=== PATIENT | male | born 1935 | race Caucasian/White ===

== ENCOUNTER → 2016-10-27 | Day surgery (SDC) | payer MEDICARE, OTHER ==
[~2016-10-27] MED LIST: Lidocaine 2% 20 ML MDV INJECT ONE; Sodium Bicarbonate 8.4% 50 MEQ/50 ML SDV ONE
[2016-10-27 15:35] VITALS: BP 165/87
--- NOTE | 2016-10-27 22:37 | OR ---
DATE OF OPERATION: 10/27/2016 PREOPERATIVE DIAGNOSIS: UNSPECIFIED LESION SUGGESTING BASAL CELL CARCINOMA ROOT OF NOSE. POSTOPERATIVE DIAGNOSIS: UNSPECIFIED LESION SUGGESTING BASAL CELL CARCINOMA ROOT OF NOSE. SURGEON: Arya Quintana MD PROCEDURE: WIDE EXCISION AND PRIMARY CLOSURE, NASAL LESION. DICTATION ENDS HERE PRO/YOMAIRA /[id number]
--- NOTE | 2016-10-27 23:07 | OR ---
DATE OF OPERATION: 10/27/2016 PREOPERATIVE DIAGNOSIS: UNSPECIFIED LESION, NASAL ROOT (SUGGESTING BASAL CELL CARCINOMA). POSTOPERATIVE DIAGNOSIS: UNSPECIFIED LESION, NASAL ROOT (SUGGESTING BASAL CELL CARCINOMA). SURGEON: Arya Quintana MD PROCEDURE: WIDE EXCISION AND PRIMARY CLOSURE. DESCRIPTION OF PROCEDURE: Dr. Ha kindly sent this gentleman to me regarding a lesion involving the nasal root. It appears to be 1 cm in diameter, it has a rolled edge margin and has some crusting within the depths of the margin. It appears to be a basal cell carcinoma. The peripheral margin is somewhat indistinct. He was taken to the operating suite and the area was prepped and draped and then following this, Xylocaine 2% with epinephrine buffered solution was carefully used with 3 mL infiltrated into the area. A wide ellipse with a margin of approximately 3 mm peripherally was then performed. The incision site was horizontal and the area was carefully undermined both by way of the nasal dorsum and also up towards the forehead area. It was necessary to undermine an area for proper closure without tension. Prior to closure, he had some fairly prominent ridging of the nasal bones dorsally. This was carefully taken down and I am sure this has been contributing to the problem due to the fact he uses CPAP at night. After undermining, I carefully closed the subcutaneous tissues with interrupted 5-0 Vicryl suture. This was buried. Following this, 6-0 Prolene was then used to close the skin edges. The area was not under tension, and following this, dressings were applied. The standard precautions are noted for discharge, a recheck with me in approximately 1 month. I will ask Dr. Ha if he could kindly remove the sutures in approximately 7-10 days. PRO/YOMAIRA /[id number]
== END ==
LOC: CC.SDS 11:44
DX: L57.8 Other skin changes due to chronic exposure to nonionizing radiation (principal)
CPT/HCPCS: 88305

== ENCOUNTER 2016-12-29 10:54 | Inpatient (IN) | payer MEDICARE, OTHER ==
[2016-12-29 12:06] LABS: CHLORIDE,CL 90 mEq/L (98-106)
[2016-12-29 12:07] LABS: SODIUM,NA 124 mEq/L (136-145)
[2016-12-29] MEDS ORDERED: Acetaminophen 325 MG Tab PO PRN (13:17)
[2016-12-29] MEDS ORDERED: Temazepam 15 MG Cap PO PRN (13:17)
[2016-12-29] MEDS ORDERED: Docusate Sodium 100 MG Cap PO PRN (13:17)
[2016-12-29] MEDS ORDERED: Sodium Chloride 0.9% 10 ML Syringe FLUSH PRN (13:17)
[2016-12-29] MEDS ORDERED: Iopamidol 612 MG/ML 100 ML Bottle IVPUSH ONE (14:23)
[2016-12-29] MEDS: Azithromycin 500 MG in Sodium Chloride 0.9% 250 ML IV SCH (16:01)
[2016-12-29] MEDS ORDERED: Albuterol 8 GM Inhaler INH PRN (16:06)
[2016-12-29] MEDS: Enoxaparin 40 MG/0.4 ML Syringe SUBCUT SCH (16:08)
[2016-12-29] MEDS: cefTRIAXone 1 GM Vial IVPUSH SCH (16:09)
[2016-12-29] MEDS: methylPREDNISolone Sodium Succinate 125 MG/2 ML SDV IVPUSH SCH (16:09)
[2016-12-29] MEDS: Celecoxib 100 MG Cap PO SCH (17:49)
[2016-12-29] MEDS: Albuterol/Ipratropium 3.0-0.5 MG/3 ML Neb Soln NEB SCH ×2 (17:49→20:29)
[2016-12-29] MEDS: Cholecalciferol (Vitamin D3) 1,000 Unit Tab PO SCH (20:04)
[2016-12-29] MEDS: Budesonide 0.5 MG/2 ML Neb Susp INH SCH (20:04)
[2016-12-29] MEDS: Famotidine 20 MG Tab PO SCH (20:04)
[2016-12-29] MEDS: Formoterol/Mometasone 200-5 MCG 8.8 GM Inhaler IH SCH (20:05)
[2016-12-30] MEDS: Celecoxib 100 MG Cap PO SCH ×2 (07:50→18:13)
[2016-12-30] MEDS: Aspirin 81 MG Tab.EC PO SCH (07:51)
[2016-12-30] MEDS: Losartan 25 MG Tab PO SCH (07:51)
[2016-12-30] MEDS: Loratadine 10 MG Tab PO SCH (07:51)
[2016-12-30] MEDS: Folic Acid 1 MG Tab PO SCH (07:51)
[2016-12-30] MEDS: Enoxaparin 40 MG/0.4 ML Syringe SUBCUT SCH (07:51)
[2016-12-30] MEDS: Famotidine 20 MG Tab PO SCH ×2 (07:51→20:29)
[2016-12-30] MEDS: cefTRIAXone 1 GM Vial IVPUSH SCH (07:54)
[2016-12-30] MEDS: Azithromycin 500 MG in Sodium Chloride 0.9% 250 ML IV SCH (07:54)
[2016-12-30] MEDS: methylPREDNISolone Sodium Succinate 125 MG/2 ML SDV IVPUSH SCH (07:54)
[2016-12-30 07:59] LABS: CHLORIDE,CL 95 mEq/L (98-106); SODIUM,NA 126 mEq/L (136-145)
[2016-12-30] MEDS: Budesonide 0.5 MG/2 ML Neb Susp INH SCH ×3 (09:45→20:30)
[2016-12-30] MEDS: Albuterol/Ipratropium 3.0-0.5 MG/3 ML Neb Soln NEB SCH ×3 (09:45→18:14)
--- NOTE | 2016-12-30 10:32 | PN ---
DATE: 12/30/2016 S: Yordy Martinez came in with an acute bronchiolitis, hyponatremia. O: NECK: Supple. CHEST: Occasional wheezing. CARDIAC: Sounds are good. GENERAL: He looks much better today. ASSESSMENT: ACUTE BRONCHIOLITIS; HYPONATREMIA, CORRECTING. P: Continue IV therapy. MANUEL/YOMAIRA /[id number]
[2016-12-30] MEDS: Formoterol/Mometasone 200-5 MCG 8.8 GM Inhaler IH SCH ×2 (10:40→20:30)
[2016-12-30] MEDS: Cholecalciferol (Vitamin D3) 1,000 Unit Tab PO SCH (20:29)
[2016-12-31] MEDS: Albuterol/Ipratropium 3.0-0.5 MG/3 ML Neb Soln NEB SCH ×5 (00:03→20:10)
[2016-12-31 07:40] LABS: CHLORIDE,CL 100 mEq/L (98-106); SODIUM,NA 134 mEq/L (136-145)
[2016-12-31] MEDS ORDERED: Methotrexate 2.5 MG Tab PO SCH (08:00)
[2016-12-31] MEDS: Enoxaparin 40 MG/0.4 ML Syringe SUBCUT SCH (08:06)
[2016-12-31] MEDS: cefTRIAXone 1 GM Vial IVPUSH SCH (08:07)
[2016-12-31] MEDS: Famotidine 20 MG Tab PO SCH ×2 (08:11→19:42)
[2016-12-31] MEDS: Loratadine 10 MG Tab PO SCH (08:11)
[2016-12-31] MEDS: Losartan 25 MG Tab PO SCH (08:11)
[2016-12-31] MEDS: Celecoxib 100 MG Cap PO SCH ×2 (08:11→17:02)
[2016-12-31] MEDS: Aspirin 81 MG Tab.EC PO SCH (08:11)
[2016-12-31] MEDS: Folic Acid 1 MG Tab PO SCH (08:11)
[2016-12-31] MEDS: methylPREDNISolone Sodium Succinate 125 MG/2 ML SDV IVPUSH SCH (08:22)
[2016-12-31] MEDS: Azithromycin 500 MG in Sodium Chloride 0.9% 250 ML IV SCH (08:33)
[2016-12-31] MEDS: Budesonide 0.5 MG/2 ML Neb Susp INH SCH ×3 (09:36→20:10)
[2016-12-31] MEDS: Formoterol/Mometasone 200-5 MCG 8.8 GM Inhaler IH SCH ×2 (09:36→20:11)
[2016-12-31] MEDS: Cholecalciferol (Vitamin D3) 1,000 Unit Tab PO SCH (19:42)
[2017-01-01 07:52] LABS: CHLORIDE,CL 103 mEq/L (98-106); SODIUM,NA 137 mEq/L (136-145)
--- NOTE | 2017-01-01 08:13 | PN ---
DATE: 12/31/2016 S: This is an elderly white male, who came in markedly weak, hyponatremic, bronchiolitis. O: GENERAL: The patient alert and oriented. NECK: Supple. CHEST: Expiratory wheezing. CARDIAC: Sounds are okay. EXTREMITIES: No edema. LABORATORY DATA: Hemoglobin had stabilized at 11.1. His sodium is now back up to 134. But he has had difficulty. He has to ambulate with help, so we talked about the possibility of prison placement. He is kind in agreement with that and would certainly going to look at that. MANUEL/YOMAIRA /[id number]
[2017-01-01 08:18] VITALS: BP 165/91
[2017-01-01] MEDS: Enoxaparin 40 MG/0.4 ML Syringe SUBCUT SCH (08:20)
[2017-01-01] MEDS: methylPREDNISolone Sodium Succinate 125 MG/2 ML SDV IVPUSH SCH (08:21)
[2017-01-01] MEDS: Aspirin 81 MG Tab.EC PO SCH (08:23)
[2017-01-01] MEDS: Famotidine 20 MG Tab PO SCH (08:23)
[2017-01-01] MEDS: Losartan 25 MG Tab PO SCH (08:23)
[2017-01-01] MEDS: Folic Acid 1 MG Tab PO SCH (08:23)
[2017-01-01] MEDS: Celecoxib 100 MG Cap PO SCH (08:24)
[2017-01-01] MEDS: Loratadine 10 MG Tab PO SCH (08:24)
[2017-01-01] MEDS: cefTRIAXone 1 GM Vial IVPUSH SCH (08:28)
[2017-01-01] MEDS: Azithromycin 500 MG in Sodium Chloride 0.9% 250 ML IV SCH (08:30)
[2017-01-01] MEDS: Budesonide 0.5 MG/2 ML Neb Susp INH SCH (08:31)
[2017-01-01] MEDS: Formoterol/Mometasone 200-5 MCG 8.8 GM Inhaler IH SCH (08:31)
[2017-01-01] MEDS: Albuterol/Ipratropium 3.0-0.5 MG/3 ML Neb Soln NEB SCH (08:31)
--- NOTE | 2017-01-04 07:17 | DISCH ---
HOSPITAL COURSE: Yordy Martinez was admitted with acute bronchiolitis and marked hyponatremia. 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 At the time of discharge, sodium was normal. His lungs were relatively clear, but he still had some difficulty with mild confusion and difficulty ambulating, so we decided to send him to the [place] [facility]. Lab here in the hospital, CBC all looked good. White count a little high from the IV steroids. Hemoglobin was stable and about where it is usually at. When he came in, sodium was 124 and it was 137 prior to discharge. Blood sugars mildly elevated. C-reactive protein 1.5. B12, folic acid, proBNP good. Urinalysis looked good. DISPOSITION: The patient now discharged to [facility] the [facility]. DISCHARGE MEDICATIONS: Home medications plus Z-Dudley plus hydrocortisone 10 mg daily. DISCHARGE DIAGNOSIS: 1. BRONCHIOLITIS. 2. HYPONATREMIA. 3. RHEUMATOID ARTHRITIS. 4. HYPERTENSION. 5. HYPERLIPIDEMIA. 6. CORONARY ARTERY DISEASE. MANUEL/YOMAIRA /[id number]
== END 2017-01-01 09:45 | DRG 191 ==
LOC: CC.FCMC 10:54 → CC.MS 10:54 → UNDOADMIN 12:16 → CC.MS 12:16 → UNDOADMIN 13:17
PROVIDERS: ADMIT General Practice; ATTEND General Practice
DX: J44.0 Chronic obstructive pulmonary disease with (acute) lower respiratory infection (principal); J21.9 Acute bronchiolitis, unspecified; E87.1 Hypo-osmolality and hyponatremia; E27.1 Primary adrenocortical insufficiency; M06.9 Rheumatoid arthritis, unspecified; R06.02 Shortness of breath; R53.83 Other fatigue; R35.1 Nocturia; I25.10 Atherosclerotic heart disease of native coronary artery without angina pectoris; I10 Essential (primary) hypertension; Z88.8 Allergy status to other drugs, medicaments and biological substances; Z79.82 Long term (current) use of aspirin; Z79.899 Other long term (current) drug therapy; R41.0 Disorientation, unspecified; R26.2 Difficulty in walking, not elsewhere classified; E78.5 Hyperlipidemia, unspecified
CPT/HCPCS: 36415; 71020; 71250; 80048; 80053; 81001; 82533; 82607; 82746; 83735; 83880; 85025; 85379; 86140; 93005; 94640; 94640-76; 97110-GP; 97161-GP; 97530-GP; A9270-GY; J0456; J0696; J1650; J2930; J7050; J8610; Q9967

== ENCOUNTER 2020-01-01 12:40 | Emergency (ER) | payer MEDICARE, OTHER ==
[2020-01-01 12:45] VITALS: BP 108/56; PULSE 91
[2020-01-01] MEDS ORDERED: Albuterol 8 GM Inhaler INH PRN (12:51)
[2020-01-01] MEDS: Albuterol/Ipratropium 3.0-0.5 MG/3 ML Neb Soln NEB ONE (13:00)
[2020-01-01] MEDS: Albuterol/Ipratropium 3.0-0.5 MG/3 ML Neb Soln ONE (13:00)
--- NOTE | 2020-01-01 13:28 | EDM.PDOC ---
ED HPI GENERAL MEDICAL PROBLEM - General Chief Complaint: Respiratory Problem Stated Complaint: SOB Time Seen by Provider: 01/01/20 13:26 Source of Information: Reports: Patient, EMS History Limitations: Reports: No Limitations - History of Present Illness INITIAL COMMENTS - FREE TEXT/NARRATIVE: Yordy is an 84 yo male who presents to the ED via [facility] with c/o shortness of breath. Does have longstanding history of COPD but reports this morning he was feeling more short of breath than usual and just overall did not feel well. Did try his nebulizer but continued to feel SOB so called EMS. He denies any chest pain, edema, dizziness, syncope, N/V/D, fever, chills. Denies any symptoms other than his shortness of breath. Did receive Duoneb enroute with EMS and breathing has improved. At time of assessment O2 sats are 97% on RA. He is conversant with no increased work of breathing. Onset: Today Duration: Improving Associated Symptoms: Reports: Shortness of Breath. Denies: Confusion, Chest Pain, Cough, cough w sputum, Fever/Chills, Headaches, Malaise, Nausea/Vomiting, Syncope, Weakness Treatments CONTACT LENS CURVE GRINDER: Reports: Breathing Treatments, Oxygen - Related Data Allergies Allergy/AdvReac Type Severity Reaction Status Date / Time clopidogrel bisulfate Allergy Intermediate Rash Verified 01/01/20 12:48 [From Plavix] Home Meds: Home Meds Albuterol/Ipratropium [DuoNeb 3.0-0.5 MG/3 ML] 1 vial NEB QID 10/11/14 [History] Cholecalciferol (Vitamin D3) [Vitamin D3] 2,000 units PO DAILY 10/11/14 [History] Folic Acid 1 mg PO DAILY 10/11/14 [History] Losartan Potassium [Cozaar] 50 mg PO DAILY 10/11/14 [History] Methotrexate Sodium [Methotrexate] 20 mg PO TH 10/11/14 [History] atorvaSTATin Calcium [Atorvastatin Calcium] 10 mg PO BEDTIME 10/11/14 [History] Albuterol Sulfate [Proair Hfa] 2 puff IH ASDIRECTED PRN 10/26/16 [History] Ascorbate Calcium [Vitamin C] 500 mg PO DAILY 10/26/16 [History] Aspirin [Halfprin] 81 mg PO DAILY 10/26/16 [History] Budesonide/Formoterol [Symbicort 160-4.5 MCG] 2 puff INH BID 10/26/16 [History] Cetirizine [ZyrTEC] 10 mg PO DAILY 10/26/16 [History] Famotidine [Pepcid] 10 mg PO DAILY 10/26/16 [History] Vitamin E 400 unit PO DAILY 10/26/16 [History] Montelukast [Singulair] 10 mg PO BEDTIME 04/19/18 [History] Tiotropium [place] [Spiriva Respimat] 2.5 mcg INH BID 01/01/20 [History] amLODIPine [Norvasc] 5 mg PO BEDTIME 01/01/20 [History] Past Medical History HEENT History: Reports: Impaired Vision Cardiovascular History: Reports: High Cholesterol, Hypertension, Stents Respiratory History: Reports: Asthma, COPD, Sleep Apnea, SOB Gastrointestinal History: Reports: PUD Genitourinary History: Reports: Prostate Disorder Musculoskeletal History: Reports: Arthritis Endocrine/Metabolic History: Reports: Vitamin D Deficiency Oncologic (Cancer) History: Reports: Prostate - Past Surgical History HEENT Surgical History: Reports: Cataract Surgery Cardiovascular Surgical History: Reports: Vascular Surgery Respiratory Surgical History: Reports: None GI Surgical History: Reports: Colonoscopy, Polypectomy Male Surgical History: Reports: Prostatectomy Musculoskeletal Surgical History: Reports: Amputation Other Musculoskeletal Surgeries/Procedures:: Accidental amputation of left pinky. Oncologic Surgical History: Reports: Other (See Below) Other Oncologic Surgeries/Procedures: Prostatectomy Social & Family History - Family History Family Medical History: Noncontributory - Tobacco Use Smoking Status *Q: Former Smoker Packs/Tins Daily: 1 Used Tobacco, but Quit: Yes Month/Year Tobacco Last Used: 04/1969 - Caffeine Use Caffeine Use: Reports: Coffee - Recreational Drug Use Recreational Drug Use: No ED ROS GENERAL - Review of Systems Review Of Systems: Comprehensive ROS is negative, except as noted in HPI. ED EXAM, GENERAL - Physical Exam Exam: See Below Exam Limited By: No Limitations General Appearance: Alert, WD/WN, No Apparent Distress Eye Exam: Bilateral Eye: EOMI, Normal Fundi, Normal Inspection, PERRL Ears: Normal External Exam, Normal Canal, Hearing Grossly Normal, Normal TMs Nose: Normal Inspection, Normal Mucosa, No Blood Throat/Mouth: Normal Inspection, Normal Lips, Normal Teeth, Normal Gums, Normal Oropharynx, Normal Voice, No Airway Compromise Head: Atraumatic, Normocephalic Neck: Normal Inspection, Supple, Non-Tender, Full Range of Motion Respiratory/Chest: No Respiratory Distress, No Accessory Muscle Use, Decreased Breath Sounds, Crackles (bilateral bases), Wheezing (bilateral bases). No: Retractions Cardiovascular: Normal Peripheral Pulses, Regular Rate, Rhythm, No Edema, No Gallop, No JVD, No Murmur, No Rub GI/Abdominal: Normal Bowel Sounds, Soft, Non-Tender, No Organomegaly, No Distention, No Abnormal Bruit, No Mass Extremities: Normal Inspection, Normal Range of Motion, Non-Tender, Normal Capillary Refill, No Pedal Edema Neurological: Alert, Oriented, CN II-XII Intact, Normal Cognition, Normal Gait, Normal Reflexes, No Motor/Sensory Deficits Psychiatric: Normal Affect Skin Exam: Warm, Dry, Intact, Normal Color, No Rash Course - Vital Signs Last Recorded V/S: Last Vital Signs Temp 98.3 F 01/01/20 12:40 Pulse 91 01/01/20 12:40 Resp 24 H 01/01/20 12:40 BP 108/56 L 01/01/20 12:40 Pulse Ox 95 01/01/20 12:40 - Orders/Labs/Meds Orders: Active Orders 24 hr Category Date Time Status Chest 2V [CR] Stat Exams 01/01/20 13:07 Taken Labs: Laboratory Tests 01/01/20 01/01/20 01/01/20 Range/Units 12:40 13:20 13:20 WBC 6.7 (5.0-10.0) 10^3/uL RBC 4.15 L (4.50-6.00) 10^6/uL Hgb 13.2 L (14.0-18.0) g/dL Hct 40.8 (40.0-54.0) % MCV 98.3 H (82.0-94.0) fL MCH 31.8 (27.0-32.0) pg MCHC 32.4 L (33.0-38.0) g/dL RDW Coeff of Keysha 15.1 H (11.0-15.0) % Plt Count 216 (150-400) 10^3/uL Neut % (Auto) 59.1 (35-85) % Lymph % (Auto) 23.1 (10-55) % [place] % (Auto) 6.4 (0-16) % Eos % (Auto) 11.3 H (0-5) % Baso % (Auto) 0.1 (0-3) % Neut # (Auto) 3.96 (1.80-7.00) 10^3/uL Lymph # (Auto) 1.55 (1.00-4.80) 10^3/uL [place] # (Auto) 0.43 (0.00-0.80) 10^3/uL Eos # (Auto) 0.76 H (0.00-0.45) 10^3/uL Baso # (Auto) 0.01 10^3/uL Sodium 137 (136-145) mEq/L Potassium 4.4 (3.5-5.0) mEq/L Chloride 101 (98-106) mEq/L Carbon Dioxide 26 (21-32) mmol/L BUN 27 H (7-18) mg/dL Creatinine 1.7 H (0.7-1.3) mg/dL Est Cr Clr Drug Dosing 30.78 mL/min Estimated GFR (MDRD) 39 L (>=60) mL/min Glucose 86 (75-99) mg/dL Calcium 8.9 (8.4-10.1) mg/dL Troponin I < 0.017 (0.00-0.06) ng/mL C-Reactive Protein 4.7 H (0.2-0.8) mg/dL NT-Pro-B Natriuret Pep 126 (0-1000) pg/mL COVID-19 ([place]) Negative (NEGATIVE) Meds: Medications Discontinued Medications Generic Name Dose Route Start Last Admin Trade Name Beatriz PRN Reason Stop Dose Admin Albuterol 8.5 gm 01/01/20 12:51 Ventolin Hfa INH Q4H PRN Dyspnea Albuterol/Ipratropium 6 ml 01/01/20 12:55 01/01/20 13:00 Duoneb 3.0-0.5 Mg/3 Ml NEB 01/01/20 12:56 6 ml ONETIME ONE Administration Albuterol/Ipratropium Confirm 01/01/20 12:37 01/01/20 13:00 Duoneb 3.0-0.5 Mg/3 Ml Administered 01/01/20 12:38 Not Given Dose 6 ml .ROUTE .STK-MED ONE Levofloxacin 500 mg 01/01/20 13:46 01/01/20 14:00 Levaquin PO 01/01/20 13:47 500 mg ONETIME ONE Administration Methylprednisolone Sodium Succinate 125 mg 01/01/20 13:46 01/01/20 14:00 Solu-Medrol IM 01/01/20 13:47 125 mg NOW STA Administration Departure - Departure Time of Disposition: 14:28 Disposition: Home, Self-Care 01 Condition: Fair Clinical Impression: COPD with exacerbation - Discharge Information *PRESCRIPTION DRUG MONITORING PROGRAM REVIEWED*: Not Applicable *COPY OF PRESCRIPTION DRUG MONITORING REPORT IN PATIENT TASHA: Not Applicable Instructions: Chronic Obstructive Pulmonary Disease Exacerbation, [id number], Shortness of Breath, Adult, [id number] Referrals: Raquel Ashley CLIENT CARE MANAGER [Primary Care Provider] - Forms: ED Department Discharge Additional Instructions: - Continue all previously prescribed inhalers and nebulizers - Start Levaquin once daily x 7 days - Start Prednisone 20 mg daily x 5 days - Take it easy until feeling better - Follow up with PCP for recheck if symptoms worsen or do not improve Sepsis Event Note (ED) - Evaluation Sepsis Screening Result: Possible Sepsis Risk - Problem List & Annotations (1) COPD with exacerbation SNOMED Code(s): 562518875 Code(s): J44.1 - CHRONIC OBSTRUCTIVE PULMONARY DISEASE W (ACUTE) EXACERBATION Status: Acute - My Orders Last 24 Hours: My Active Orders 01/01/20 13:07 Chest 2V [CR] Stat - Assessment/Plan Last 24 Hours: My Active Orders 01/01/20 13:07 Chest 2V [CR] Stat Assessment:: COPD with exacerbation Plan: Labs, EKG and CXR all negative. Patient breathing did improve after nebulizer treatments. Does have wheezing/crackles to BLL. Meds as directed. Recommend he continue all his previously prescribed inhalers/nebulizers and follow up with PCP for recheck if symptoms worsen or do not improve. Patient was observed for a few hours as he did not have a ride home. His breathing improved and he had no additional complaints. He was discharged home in satisfactory condition.
[2020-01-01 13:46] LABS: CHLORIDE,CL 101 mEq/L (98-106); SODIUM,NA 137 mEq/L (136-145)
[2020-01-01] MEDS: Levofloxacin 500 MG Tab PO ONE (14:00)
[2020-01-01] MEDS: methylPREDNISolone Sodium Succinate 125 MG/2 ML SDV IM STA (14:00)
== END 2020-01-01 18:32 | disposition home or self-care (01) ==
LOC: CC.ED 12:40
DX: J44.1 Chronic obstructive pulmonary disease with (acute) exacerbation (principal); E78.00 Pure hypercholesterolemia, unspecified; M19.90 Unspecified osteoarthritis, unspecified site; I10 Essential (primary) hypertension; Z95.5 Presence of coronary angioplasty implant and graft; Z87.891 Personal history of nicotine dependence; Z79.82 Long term (current) use of aspirin; Z79.899 Other long term (current) drug therapy; Z88.8 Allergy status to other drugs, medicaments and biological substances; Z20.828 Contact with and (suspected) exposure to other viral communicable diseases
CPT/HCPCS: 36415; 71046; 80048; 83880; 84484; 85025; 86140; 93005; 94640; 96372; 99285-25; A9270-GY; J2930; J7620-GY; U0002

== ENCOUNTER 2020-01-22 15:12 | Inpatient (IN) | payer MEDICARE, OTHER ==
[2020-01-22] MEDS: Enoxaparin 40 MG/0.4 ML Syringe SUBCUT SCH (17:14)
[2020-01-22] MEDS: Sodium Chloride 0.9% 1,000 ML IV SCH (17:14)
[2020-01-22] MEDS: Levofloxacin/Dextrose 5%-Water 500 MG in Premix Bag 1 BAG IV SCH (17:14)
[2020-01-22] MEDS ORDERED: Albuterol 8 GM Inhaler INH PRN (18:54)
[2020-01-22] MEDS: atorvaSTATin 20 MG Tab PO SCH (19:32)
[2020-01-22] MEDS: Albuterol/Ipratropium 3.0-0.5 MG/3 ML Neb Soln INH SCH (19:32)
[2020-01-22] MEDS: amLODIPine 2.5 MG Tab PO SCH (19:35)
[2020-01-22] MEDS: Montelukast 10 MG Tab PO SCH (19:39)
[2020-01-22] MEDS: Formoterol/Mometasone 200-5 MCG 8.8 GM Inhaler IH SCH (20:30)
[2020-01-23] MEDS: Albuterol/Ipratropium 3.0-0.5 MG/3 ML Neb Soln INH SCH ×4 (07:56→19:32)
[2020-01-23] MEDS: Losartan 25 MG Tab PO SCH (07:56)
[2020-01-23] MEDS: Formoterol/Mometasone 200-5 MCG 8.8 GM Inhaler IH SCH ×2 (07:57→19:32)
[2020-01-23] MEDS: Aspirin 81 MG Tab.EC PO SCH (07:58)
[2020-01-23] MEDS: Vitamin E (dl-alpha-tocopherol acetate) 400 Unit Cap PO SCH (07:58)
[2020-01-23] MEDS: Loratadine 10 MG Tab PO SCH (07:59)
[2020-01-23] MEDS: Famotidine 20 MG Tab PO SCH (07:59)
[2020-01-23] MEDS ORDERED: Cosyntropin 0.25 MG Vial IM ONE (09:15)
[2020-01-23] MEDS: Sodium Chloride 0.9% 1,000 ML IV SCH (12:49)
--- NOTE | 2020-01-23 14:37 | PCM.PN ---
- General Info Date of Service: 01/23/20 Admission Dx/Problem (Free Text): Pneumonia Functional Status: Reports: Pain Controlled, Tolerating Diet, Ambulating - Review of Systems General: Reports: Weakness, Fatigue, Malaise HEENT: Reports: No Symptoms Pulmonary: Reports: Cough. Denies: Shortness of Breath, Sputum Cardiovascular: Denies: Chest Pain, Edema, Lightheadedness Gastrointestinal: Denies: Abdominal Pain, Nausea, Vomiting Genitourinary: Reports: No Symptoms Musculoskeletal: Reports: No Symptoms Skin: Reports: No Symptoms Neurological: Reports: Weakness - Patient Data Vitals - Most Recent: Last Vital Signs Temp 98.4 F 01/23/20 11:01 Pulse 92 01/23/20 11:01 Resp 16 01/23/20 11:01 BP 127/54 L 01/23/20 11:01 Pulse Ox 92 L 01/23/20 11:01 Weight - Most Recent: 194 lb 14.4 oz I&O - Last 24 Hours: Intake & Output 01/22/20 01/23/20 01/23/20 22:59 06:59 14:59 Intake Total 979 Balance 979 Lab Results Last 24 Hours: Laboratory Results - last 24 hr 01/22/20 01/22/20 01/22/20 Range/Units 15:14 16:25 16:25 WBC 6.2 (5.0-10.0) 10^3/uL RBC 3.72 L (4.50-6.00) 10^6/uL Hgb 11.9 L (14.0-18.0) g/dL Hct 37.1 L (40.0-54.0) % MCV 99.7 H (82.0-94.0) fL MCH 32.0 (27.0-32.0) pg MCHC 32.1 L (33.0-38.0) g/dL RDW Coeff of Keysha 15.5 H (11.0-15.0) % Plt Count 202 (150-400) 10^3/uL Add Manual Diff Yes Neutrophils % (Manual) 54 (35-85) % Lymphocytes % (Manual) 20 L (21-55) % Monocytes % (Manual) 4 (2-12) % Eosinophils % (Manual) 22 H (0-5) % Sodium 138 (136-145) mEq/L Potassium 4.1 (3.5-5.0) mEq/L Chloride 104 (98-106) mEq/L Carbon Dioxide 25 (21-32) mmol/L BUN 25 H (7-18) mg/dL Creatinine 1.7 H (0.7-1.3) mg/dL Est Cr Clr Drug Dosing 31.32 mL/min Estimated GFR (MDRD) 39 L (>=60) mL/min Glucose 92 (75-99) mg/dL Calcium 9.1 (8.4-10.1) mg/dL Total Bilirubin 0.4 (0.0-1.0) mg/dL AST 18 (15-37) U/L ALT 23 (12-78) U/L Alkaline Phosphatase 58 (46-116) U/L Creatine Kinase 60 (35-232) U/L Troponin I 0.034 (0.00-0.06) ng/mL C-Reactive Protein 1.8 H (0.2-0.8) mg/dL Total Protein 7.8 (6.4-8.2) g/dL Albumin 3.4 (3.4-5.0) g/dL Urine Color (YELLOW) Urine Appearance (CLEAR) Urine pH (4.5-8.0) Ur Specific [place] (1.003-1.020) Urine Protein (NEGATIVE) mg/dL Urine Glucose (UA) (NEGATIVE) mg/dL Urine Ketones (NEGATIVE) mg/dL Urine Occult Blood (NEGATIVE) Urine Nitrite (NEGATIVE) Urine Bilirubin (NEGATIVE) Urine Urobilinogen (0.2-1.0) EU/dL Ur Leukocyte Esterase (NEGATIVE) Urine RBC (0-5) /HPF Urine WBC (0-5) /HPF Ur Epithelial Cells (NOT SEEN) /HPF Amorphous Sediment (NOT SEEN) /HPF SARS CoV-2 RNA Rapid [place] Negative (NEGATIVE) 01/23/20 Range/Units 03:09 WBC (5.0-10.0) 10^3/uL RBC (4.50-6.00) 10^6/uL Hgb (14.0-18.0) g/dL Hct (40.0-54.0) % MCV (82.0-94.0) fL MCH (27.0-32.0) pg MCHC (33.0-38.0) g/dL RDW Coeff of Keysha (11.0-15.0) % Plt Count (150-400) 10^3/uL Add Manual Diff Neutrophils % (Manual) (35-85) % Lymphocytes % (Manual) (21-55) % Monocytes % (Manual) (2-12) % Eosinophils % (Manual) (0-5) % Sodium (136-145) mEq/L Potassium (3.5-5.0) mEq/L Chloride (98-106) mEq/L Carbon Dioxide (21-32) mmol/L BUN (7-18) mg/dL Creatinine (0.7-1.3) mg/dL Est Cr Clr Drug Dosing mL/min Estimated GFR (MDRD) (>=60) mL/min Glucose (75-99) mg/dL Calcium (8.4-10.1) mg/dL Total Bilirubin (0.0-1.0) mg/dL AST (15-37) U/L ALT (12-78) U/L Alkaline Phosphatase (46-116) U/L Creatine Kinase (35-232) U/L Troponin I (0.00-0.06) ng/mL C-Reactive Protein (0.2-0.8) mg/dL Total Protein (6.4-8.2) g/dL Albumin (3.4-5.0) g/dL Urine Color Yellow (YELLOW) Urine Appearance Slightly cloudy (CLEAR) Urine pH 5.0 (4.5-8.0) Ur Specific [place] 1.025 H (1.003-1.020) Urine Protein Negative (NEGATIVE) mg/dL Urine Glucose (UA) Negative (NEGATIVE) mg/dL Urine Ketones Negative (NEGATIVE) mg/dL Urine Occult Blood Negative (NEGATIVE) Urine Nitrite Negative (NEGATIVE) Urine Bilirubin Negative (NEGATIVE) Urine Urobilinogen 0.2 (0.2-1.0) EU/dL Ur Leukocyte Esterase Negative (NEGATIVE) Urine RBC Not seen (0-5) /HPF Urine WBC Not seen (0-5) /HPF Ur Epithelial Cells Occasional H (NOT SEEN) /HPF Amorphous Sediment Few H (NOT SEEN) /HPF SARS CoV-2 RNA Rapid [place] (NEGATIVE) Med Orders - Current: Current Medications Albuterol (Ventolin Hfa) 0 gm INH Q4H PRN PRN Reason: Shortness of Breath Albuterol/Ipratropium (Duoneb 3.0-0.5 Mg/3 Ml) 3 ml INH QIDRT [facility] Last Admin: 01/23/20 11:39 Dose: 3 ml Documented by: Amlodipine Besylate (Norvasc) 5 mg PO BEDTIME [facility] Last Admin: 01/22/20 19:35 Dose: 5 mg Documented by: Aspirin (Halfprin) 81 mg PO DAILY [facility] Last Admin: 01/23/20 07:58 Dose: 81 mg Documented by: Atorvastatin Calcium (Lipitor) 10 mg PO BEDTIME [facility] Last Admin: 01/22/20 19:32 Dose: 10 mg Documented by: Enoxaparin Sodium (Lovenox) 40 mg SUBCUT Q24H [facility] Last Admin: 01/22/20 17:14 Dose: 40 mg Documented by: Famotidine (Pepcid) 10 mg PO DAILY [facility] Last Admin: 01/23/20 07:59 Dose: 10 mg Documented by: Sodium Chloride (Normal Saline) 1,000 mls @ 50 mls/hr IV ASDIRECTED [facility] Last Admin: 01/23/20 12:49 Dose: 50 mls/hr Documented by: Levofloxacin/Dextrose 500 mg/ (Premix) 100 mls @ 100 mls/hr IV Q24H [facility] Last Admin: 01/22/20 17:14 Dose: 100 mls/hr Documented by: Loratadine (Claritin) 10 mg PO DAILY [facility] Last Admin: 01/23/20 07:59 Dose: 10 mg Documented by: Losartan Potassium (Cozaar) 50 mg PO DAILY [facility] Last Admin: 01/23/20 07:56 Dose: 50 mg Documented by: Methotrexate (Methotrexate) 20 mg PO TH [facility] Mometasone Furoate/Formoterol Fumar (Dulera 200-5 Mcg) 2 puff IH BID [facility] Last Admin: 01/23/20 07:57 Dose: 2 puff Documented by: Montelukast Sodium (Singulair) 10 mg PO BEDTIME [facility] Last Admin: 01/22/20 19:39 Dose: 10 mg Documented by: Vitamin E (Vitamin E) 400 units PO DAILY [facility] Last Admin: 01/23/20 07:58 Dose: 400 units Documented by: Discontinued Medications Cosyntropin (Cortrosyn) 0.25 mg IM ONETIME ONE Stop: 01/23/20 09:16 Last Admin: 01/23/20 09:15 Dose: 0.25 mg Documented by: - Exam General: Alert, Oriented HEENT: Mucous Membr. Moist/Wever Neck: Supple Lungs: Decreased Breath Sounds, Rales Cardiovascular: Regular Rate, Regular Rhythm GI/Abdominal Exam: Normal Bowel Sounds, Soft, Non-Tender Extremities: Normal Inspection, No Pedal Edema Skin: Warm, Dry Neurological: No New Focal Deficit Sepsis Event Note - Evaluation Sepsis Screening Result: No Definite Risk - Focused Exam Vital Signs: Vital Signs Temp Pulse Resp BP BP Pulse Ox 01/23/20 11:01 98.4 F 92 16 127/54 L 92 L 01/23/20 07:56 121/63 01/23/20 07:42 98.7 F 82 18 121/63 92 L 01/23/20 03:02 97.5 F 93 20 139/68 94 L - Problem List & Annotations (1) Pneumonia SNOMED Code(s): 497525567 Status: Acute Priority: High Current Visit: Yes Qualifiers: Pneumonia type: due to other aerobic Gram-negative bacteria Laterality: right Lung location: middle lobe of lung Qualified Code(s): J15.6 - Pneumonia due to other Gram-negative bacteria - Problem List Review Problem List Initiated/Reviewed/Updated: Yes - Assessment Assessment:: Right Mid lobe pneumonia - Plan Plan:: Patient states is feeling better today. Does still feel tired and weak but body aches are improved. Still has cough, no shortness of breath. Oxygen sats are greater than 92% on room air. Afebrile. WBC on admission late yesterday afternoon was normal. CRP 1.8. Creatinine 1.7. Chest xray shows right mid lobe pneumonia. Due to fatigue and persisting symptoms, ACTH stim test to be done this am. Will continue with IV Levaquin. Nebs. Reevaluate labs in am.
[2020-01-23] MEDS: Levofloxacin/Dextrose 5%-Water 500 MG in Premix Bag 1 BAG IV SCH (15:39)
[2020-01-23] MEDS: Enoxaparin 40 MG/0.4 ML Syringe SUBCUT SCH (17:12)
[2020-01-23] MEDS: amLODIPine 2.5 MG Tab PO SCH (19:32)
[2020-01-23] MEDS: atorvaSTATin 20 MG Tab PO SCH (19:32)
[2020-01-23] MEDS: Montelukast 10 MG Tab PO SCH (19:32)
[2020-01-24] MEDS: Loratadine 10 MG Tab PO SCH (07:56)
[2020-01-24] MEDS: Aspirin 81 MG Tab.EC PO SCH (07:56)
[2020-01-24] MEDS: Vitamin E (dl-alpha-tocopherol acetate) 400 Unit Cap PO SCH (07:56)
[2020-01-24] MEDS: Losartan 25 MG Tab PO SCH (07:57)
[2020-01-24] MEDS: Albuterol/Ipratropium 3.0-0.5 MG/3 ML Neb Soln INH SCH ×4 (07:57→20:09)
[2020-01-24] MEDS: Famotidine 20 MG Tab PO SCH (07:58)
[2020-01-24] MEDS: Formoterol/Mometasone 200-5 MCG 8.8 GM Inhaler IH SCH ×2 (07:59→20:09)
--- NOTE | 2020-01-24 15:55 | PCM.PN ---
- General Info Date of Service: 01/24/20 Admission Dx/Problem (Free Text): Pneumonia Functional Status: Reports: Pain Controlled, Tolerating Diet, Ambulating - Review of Systems General: Reports: Weakness, Fatigue, Malaise HEENT: Denies: Ear Pain, Sinus Congestion, Sore Throat Pulmonary: Reports: Shortness of Breath, Cough Cardiovascular: Denies: Chest Pain, Edema, Lightheadedness Gastrointestinal: Denies: Abdominal Pain, Nausea, Vomiting Genitourinary: Reports: No Symptoms Musculoskeletal: Reports: No Symptoms Skin: Reports: No Symptoms Neurological: Reports: Weakness - Patient Data Vitals - Most Recent: Last Vital Signs Temp 98.2 F 01/24/20 12:00 Pulse 90 01/24/20 12:00 Resp 20 01/24/20 12:00 BP 141/66 H 01/24/20 12:00 Pulse Ox 94 L 01/24/20 12:00 Weight - Most Recent: 194 lb 14.4 oz Lab Results Last 24 Hours: Laboratory Results - last 24 hr 01/22/20 01/24/20 01/24/20 Range/Units 09:08 08:25 08:25 WBC 5.1 (5.0-10.0) 10^3/uL RBC 3.59 L (4.50-6.00) 10^6/uL Hgb 11.4 L (14.0-18.0) g/dL Hct 35.6 L (40.0-54.0) % MCV 99.2 H (82.0-94.0) fL MCH 31.8 (27.0-32.0) pg MCHC 32.0 L (33.0-38.0) g/dL RDW Coeff of Keysha 15.2 H (11.0-15.0) % Plt Count 199 (150-400) 10^3/uL Add Manual Diff Yes Neutrophils % (Manual) 46 (35-85) % Lymphocytes % (Manual) 24 (21-55) % Monocytes % (Manual) 2 (2-12) % Eosinophils % (Manual) 28 H (0-5) % Absolute Neutrophils 2.35 (1.80-7.00) 10^3/uL Lymphocytes # (Manual) 1.22 (1.00-4.80) 10^3/uL Monocytes # (Manual) 0.10 (0.00-0.80) 10^3/uL Eosinophils # (Manual) 1.43 H (0.00-0.45) 10^3/uL Sodium 141 (136-145) mEq/L Potassium 4.1 (3.5-5.0) mEq/L Chloride 105 (98-106) mEq/L Carbon Dioxide 25 (21-32) mmol/L BUN 18 (7-18) mg/dL Creatinine 1.6 H (0.7-1.3) mg/dL Est Cr Clr Drug Dosing 33.27 mL/min Estimated GFR (MDRD) 41 L (>=60) mL/min Glucose 104 H (75-99) mg/dL Calcium 8.9 (8.4-10.1) mg/dL C-Reactive Protein 1.7 H (0.2-0.8) mg/dL Cortisol Resp to ACTH 1.1 ug/dL Cortisol Resp ACTH 30m 4.6 ug/dL Cortisol Resp ACTH 60m 5.9 ug/dL Med Orders - Current: Current Medications Albuterol (Ventolin Hfa) 0 gm INH Q4H PRN PRN Reason: Shortness of Breath Albuterol/Ipratropium (Duoneb 3.0-0.5 Mg/3 Ml) 3 ml INH QIDRT [facility] Last Admin: 01/24/20 11:53 Dose: 3 ml Documented by: Amlodipine Besylate (Norvasc) 5 mg PO BEDTIME [facility] Last Admin: 01/23/20 19:32 Dose: 5 mg Documented by: Aspirin (Halfprin) 81 mg PO DAILY [facility] Last Admin: 01/24/20 07:56 Dose: 81 mg Documented by: Atorvastatin Calcium (Lipitor) 10 mg PO BEDTIME [facility] Last Admin: 01/23/20 19:32 Dose: 10 mg Documented by: Enoxaparin Sodium (Lovenox) 40 mg SUBCUT Q24H [facility] Last Admin: 01/23/20 17:12 Dose: 40 mg Documented by: Famotidine (Pepcid) 10 mg PO DAILY [facility] Last Admin: 01/24/20 07:58 Dose: 10 mg Documented by: Levofloxacin/Dextrose 500 mg/ (Premix) 100 mls @ 100 mls/hr IV Q24H [facility] Last Admin: 01/23/20 15:39 Dose: 100 mls/hr Documented by: Loratadine (Claritin) 10 mg PO DAILY [facility] Last Admin: 01/24/20 07:56 Dose: 10 mg Documented by: Losartan Potassium (Cozaar) 50 mg PO DAILY [facility] Last Admin: 01/24/20 07:57 Dose: 50 mg Documented by: Methotrexate (Methotrexate) 20 mg PO TH [facility] Mometasone Furoate/Formoterol Fumar (Dulera 200-5 Mcg) 2 puff IH BID [facility] Last Admin: 01/24/20 07:59 Dose: 2 puff Documented by: Montelukast Sodium (Singulair) 10 mg PO BEDTIME [facility] Last Admin: 01/23/20 19:32 Dose: 10 mg Documented by: Vitamin E (Vitamin E) 400 units PO DAILY [facility] Last Admin: 01/24/20 07:56 Dose: 400 units Documented by: Discontinued Medications Cosyntropin (Cortrosyn) 0.25 mg IM ONETIME ONE Stop: 01/23/20 09:16 Last Admin: 01/23/20 09:15 Dose: 0.25 mg Documented by: Sodium Chloride (Normal Saline) 1,000 mls @ 50 mls/hr IV ASDIRECTED [facility] Last Admin: 01/23/20 12:49 Dose: 50 mls/hr Documented by: - Exam General: Alert, Oriented HEENT: Mucous Membr. Moist/[place] Neck: Supple Lungs: Crackles (bases bilaterally) Cardiovascular: Regular Rate, Regular Rhythm GI/Abdominal Exam: Normal Bowel Sounds, Soft, Non-Tender Extremities: Normal Inspection, No Pedal Edema Skin: Warm, Dry Neurological: No New Focal Deficit Sepsis Event Note - Evaluation Sepsis Screening Result: No Definite Risk - Focused Exam Vital Signs: Vital Signs Temp Pulse Resp BP BP Pulse Ox 01/24/20 12:00 98.2 F 90 20 141/66 H 94 L 01/24/20 08:00 98.5 F 91 20 146/72 H 92 L 01/24/20 07:57 146/72 H 01/24/20 03:52 99.1 F 90 16 112/53 L 93 L - Problem List & Annotations (1) Pneumonia SNOMED Code(s): 678761631 Status: Acute Priority: High Current Visit: Yes Qualifiers: Pneumonia type: due to other aerobic Gram-negative bacteria Laterality: right Lung location: middle lobe of lung Qualified Code(s): J15.6 - Pneumonia due to other Gram-negative bacteria - Problem List Review Problem List Initiated/Reviewed/Updated: Yes - My Orders Last 24 Hours: My Active Orders 01/24/20 09:01 Consult to Physical Therapy [PT Evaluation and Treatment] [CONS] Routine - Assessment Assessment:: Right Mid lobe pneumonia - Plan Plan:: Patient states is feeling better today. Does still feel tired and weak but body aches are improved. Still has cough, no shortness of breath. Oxygen sats are greater than 92% on room air. Afebrile. WBC on admission late yesterday afternoon was normal. CRP 1.8. Creatinine 1.7. Chest xray shows right mid lobe pneumonia. Due to fatigue and persisting symptoms, ACTH stim test to be done this am. Will continue with IV Levaquin. Nebs. Reevaluate labs in am. 01-24-2020- Patient feeling "okay today". Feels weak and tired yet. Low grade temps. Oxygen sat 93-94% on room air. Is ambulating in room but admits gets dyspneic easy with exertion. WBC normal at 5.1, CRP 1.7. Creatinine 1.6. Will continue with IV levaquin and nebs. PT to evaluate due to weakness.
[2020-01-24] MEDS: Levofloxacin/Dextrose 5%-Water 500 MG in Premix Bag 1 BAG IV SCH (16:25)
[2020-01-24] MEDS: Enoxaparin 40 MG/0.4 ML Syringe SUBCUT SCH (16:31)
[2020-01-24] MEDS ORDERED: Sertraline 25 MG Tab PO SCH (20:00)
[2020-01-24] MEDS: amLODIPine 2.5 MG Tab PO SCH (20:08)
[2020-01-24] MEDS: Montelukast 10 MG Tab PO SCH (20:08)
[2020-01-24] MEDS: atorvaSTATin 20 MG Tab PO SCH (20:08)
[2020-01-25] MEDS: Albuterol/Ipratropium 3.0-0.5 MG/3 ML Neb Soln INH SCH ×2 (07:40→12:39)
[2020-01-25] MEDS: Vitamin E (dl-alpha-tocopherol acetate) 400 Unit Cap PO SCH (07:40)
[2020-01-25] MEDS: Losartan 25 MG Tab PO SCH (07:40)
[2020-01-25] MEDS: Aspirin 81 MG Tab.EC PO SCH (07:40)
[2020-01-25] MEDS: Loratadine 10 MG Tab PO SCH (07:40)
[2020-01-25] MEDS: Famotidine 20 MG Tab PO SCH (07:40)
[2020-01-25] MEDS: Formoterol/Mometasone 200-5 MCG 8.8 GM Inhaler IH SCH (07:42)
[2020-01-25] MEDS ORDERED: Levofloxacin/Dextrose 5%-Water 500 MG in Premix Bag 1 BAG IV SCH ×2 (10:00→12:45)
[2020-01-25 12:46] VITALS: BP 142/73; PULSE 82
[2020-01-25] MEDS ORDERED: Methotrexate 2.5 MG Tab PO SCH (18:54)
--- NOTE | 2020-01-25 21:19 | PCM.DCSUM1 ---
Discharge Summary - Hospital Course Free Text/Narrative:: Patient presented to clinic to see Dr. Pascual for persistent fatigue, cough, back pain and shortness of breath. Reported had just not been feeling well. Had been previously seen by Ant with similar symptoms. Had previous cardiac work up and CTA to rule out PE and all negative. ADmitted for concerns with fatigue, dehydration. As has been on steroids multiple times in the past, cortisol stim test ordered. Diagnosis: Stroke: No Modified Stephenson Scale: No Symptoms at All Modified Woody Scale Score: 0 - Discharge Data Discharge Date: 01/25/20 Discharge Disposition: Home, Self-Care 01 Condition: Good - Referral to Home Health Primary Care Physician: Tan Pascual MD - Discharge Diagnosis/Problem(s) (1) Pneumonia SNOMED Code(s): 720554329 Status: Acute Priority: High Qualifiers: Pneumonia type: due to other aerobic Gram-negative bacteria Laterality: right Lung location: middle lobe of lung Qualified Code(s): J15.6 - Pneumonia due to other Gram-negative bacteria - Patient Summary/Data Complications: none Consults: Consultations 01/24/20 09:01 Consult to Physical Therapy [PT Evaluation and Treatment] [CONS] Routine Hospital Course: Patient is feeling stronger today. Less shortness of breath. Ambulating in walker and tolerating well with less shortness of breath. 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 Chest xray did show right mid lobe pneumonia. Has been on IV Levaquin through stay. Labs have remained stable. CRP 1.7, WBC normal. 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 Started on hydrocortisone 10 mg in am, 5 mg in PM. Will continue Levaquin oral on admit for another 7 days. Follow up with Dr. Pascual in clinic - Patient Instructions Diet: Usual Diet as Tolerated Activity: As Tolerated - Discharge Plan *PRESCRIPTION DRUG MONITORING PROGRAM REVIEWED*: No *COPY OF PRESCRIPTION DRUG MONITORING REPORT IN PATIENT TASHA: No Prescriptions/Med Rec: Hydrocortisone [Cortef] 5 mg PO BEDTIME #30 tablet Hydrocortisone 10 mg PO DAILY #30 tablet levoFLOXacin [Levaquin] 500 mg PO DAILY #7 tab Sertraline [Zoloft] 25 mg PO BEDTIME #30 tablet Home Medications: Home Meds Cholecalciferol (Vitamin D3) [Vitamin D3] 2,000 units PO DAILY 10/11/14 [History] Folic Acid 1 mg PO DAILY 10/11/14 [History] Losartan Potassium [Cozaar] 50 mg PO DAILY 10/11/14 [History] Methotrexate Sodium [Methotrexate] 20 mg PO TH 10/11/14 [History] atorvaSTATin Calcium [Atorvastatin Calcium] 10 mg PO BEDTIME 10/11/14 [History] Ascorbate Calcium [Vitamin C] 500 mg PO DAILY 10/26/16 [History] Aspirin [Halfprin] 81 mg PO DAILY 10/26/16 [History] Budesonide/Formoterol [Symbicort 160-4.5 MCG] 2 puff INH TID 10/26/16 [History] Cetirizine [ZyrTEC] 10 mg PO DAILY 10/26/16 [History] Famotidine [Pepcid] 10 mg PO DAILY 10/26/16 [History] Vitamin E 400 unit PO DAILY 10/26/16 [History] Montelukast [Singulair] 10 mg PO BEDTIME 04/19/18 [History] Tiotropium [place] [Spiriva Respimat] 2.5 mcg INH DAILY 01/01/20 [History] amLODIPine [Norvasc] 5 mg PO BEDTIME 01/01/20 [History] Albuterol [Proventil HFA] 2 puff INH Q4HR PRN 01/22/20 [History] Budesonide/Formoterol [Symbicort 160-4.5 MCG] 2 puff INH BID 01/22/20 [History] Ipratropium/Albuterol Sulfate [Iprat-Albut 0.5-3(2.5) mg/3 ml] 1 vial INH QID 01/22/20 [History] Hydrocortisone 10 mg PO DAILY #30 tablet 01/25/20 [Rx] Hydrocortisone [Cortef] 5 mg PO BEDTIME #30 tablet 01/25/20 [Rx] Sertraline [Zoloft] 25 mg PO BEDTIME #30 tablet 01/25/20 [Rx] levoFLOXacin [Levaquin] 500 mg PO DAILY #7 tab 01/25/20 [Rx] - Discharge Summary/Plan Comment DC Time >30 min.: No - General Info Date of Service: 01/25/20 Admission Dx/Problem (Free Text: Pneumonia Functional Status: Reports: Pain Controlled, Tolerating Diet, Ambulating - Review of Systems General: Reports: Weakness, Fatigue. Denies: Fever HEENT: Reports: No Symptoms Pulmonary: Reports: Shortness of Breath. Denies: Cough Cardiovascular: Denies: Chest Pain, Edema, Lightheadedness Gastrointestinal: Denies: Abdominal Pain, Nausea, Vomiting Genitourinary: Reports: No Symptoms Musculoskeletal: Reports: No Symptoms Skin: Reports: No Symptoms Neurological: Reports: Weakness - Patient Data Vitals - Most Recent: Last Vital Signs Temp 97.0 F 01/25/20 12:00 Pulse 82 01/25/20 12:00 Resp 18 01/25/20 12:00 BP 142/73 H 01/25/20 12:00 Pulse Ox 100 01/25/20 12:00 Weight - Most Recent: 194 lb 14.4 oz Med Orders - Current: Current Medications Discontinued Medications Albuterol (Ventolin Hfa) 0 gm INH Q4H PRN PRN Reason: Shortness of Breath Albuterol/Ipratropium (Duoneb 3.0-0.5 Mg/3 Ml) 3 ml INH QIDRT [facility] Last Admin: 01/25/20 12:39 Dose: 3 ml Documented by: Amlodipine Besylate (Norvasc) 5 mg PO BEDTIME [facility] Last Admin: 01/24/20 20:08 Dose: 5 mg Documented by: Aspirin (Halfprin) 81 mg PO DAILY [facility] Last Admin: 01/25/20 07:40 Dose: 81 mg Documented by: Atorvastatin Calcium (Lipitor) 10 mg PO BEDTIME [facility] Last Admin: 01/24/20 20:08 Dose: 10 mg Documented by: Cosyntropin (Cortrosyn) 0.25 mg IM ONETIME ONE Stop: 01/23/20 09:16 Last Admin: 01/23/20 09:15 Dose: 0.25 mg Documented by: Enoxaparin Sodium (Lovenox) 40 mg SUBCUT Q24H [facility] Last Admin: 01/24/20 16:31 Dose: 40 mg Documented by: Famotidine (Pepcid) 10 mg PO DAILY [facility] Last Admin: 01/25/20 07:40 Dose: 10 mg Documented by: Sodium Chloride (Normal Saline) 1,000 mls @ 50 mls/hr IV ASDIRECTED [facility] Last Admin: 01/23/20 12:49 Dose: 50 mls/hr Documented by: Levofloxacin/Dextrose 500 mg/ (Premix) 100 mls @ 100 mls/hr IV Q24H [facility] Last Admin: 01/24/20 16:25 Dose: 100 mls/hr Documented by: Levofloxacin/Dextrose 500 mg/ (Premix) 100 mls @ 100 mls/hr IV Q24H [facility] Last Admin: 01/25/20 12:44 Dose: Not Given Documented by: Levofloxacin/Dextrose 500 mg/ (Premix) 100 mls @ 100 mls/hr IV Q24H [facility] Last Admin: 01/25/20 12:39 Dose: 100 mls/hr Documented by: Loratadine (Claritin) 10 mg PO DAILY [facility] Last Admin: 01/25/20 07:40 Dose: 10 mg Documented by: Losartan Potassium (Cozaar) 50 mg PO DAILY [facility] Last Admin: 01/25/20 07:40 Dose: 50 mg Documented by: Methotrexate (Methotrexate) 20 mg PO [facility] Mometasone Furoate/Formoterol Fumar (Dulera 200-5 Mcg) 2 puff IH BID [facility] Last Admin: 01/25/20 07:42 Dose: 2 puff Documented by: Montelukast Sodium (Singulair) 10 mg PO BEDTIME [facility] Last Admin: 01/24/20 20:08 Dose: 10 mg Documented by: Sertraline HCl (Zoloft) 25 mg PO BEDTIME [facility] Last Admin: 01/24/20 20:08 Dose: 25 mg Documented by: Vitamin E (Vitamin E) 400 units PO DAILY [facility] Last Admin: 01/25/20 07:40 Dose: 400 units Documented by: - Exam General: Reports: Alert, Oriented HEENT: Reports: Mucous Membr. Moist/[place] Neck: Reports: Supple Lungs: Reports: Clear to Auscultation, Decreased Breath Sounds Cardiovascular: Reports: Regular Rate, Regular Rhythm GI/Abdominal Exam: Normal Bowel Sounds, Soft, Non-Tender Extremities: Normal Inspection, No Pedal Edema Skin: Reports: Warm, Dry Neurological: Reports: No New Focal Deficit
== END 2020-01-25 14:23 | disposition home or self-care (01) | DRG 178 ==
LOC: CC.FCMC 15:12 → CC.MS 15:44 → UNDOADMIN 15:44 → CC.MS 16:18
PROVIDERS: ADMIT Family Medicine; ATTEND Family Medicine
DX: J15.6 Pneumonia due to other Gram-negative bacteria (principal); J44.0 Chronic obstructive pulmonary disease with (acute) lower respiratory infection; E27.1 Primary adrenocortical insufficiency; C61 Malignant neoplasm of prostate; J30.9 Allergic rhinitis, unspecified; R53.1 Weakness; I25.10 Atherosclerotic heart disease of native coronary artery without angina pectoris; I10 Essential (primary) hypertension; E78.5 Hyperlipidemia, unspecified; M06.9 Rheumatoid arthritis, unspecified; E55.9 Vitamin D deficiency, unspecified; Z79.82 Long term (current) use of aspirin; Z87.11 Personal history of peptic ulcer disease; R06.02 Shortness of breath; J44.9 Chronic obstructive pulmonary disease, unspecified; Z20.828 Contact with and (suspected) exposure to other viral communicable diseases
CPT/HCPCS: 80400; 82533; U0002; 36415; 71046; 80048; 80053; 81001; 82550; 84484; 85025; 86140; 93005; 94640; 97110-GP; 97161-GP; A9270-GY; J0834; J1650; J1956; J7030; J7620-GY